=== PATIENT | female | born 1940 | race Caucasian/White ===

== ENCOUNTER 2016-08-13 06:19 | Inpatient (IN) ==
[2016-08-13] MEDS ORDERED: Lidocaine -MPF 1% 2 ML VIAL ID ONE (06:35)
[2016-08-13] MEDS ORDERED: Vancomycin 1,000 MG in D5% in Water 250 ML IVPB ONE (06:35)
[2016-08-13] MEDS ORDERED: CeFAZolin Pre 2,000 MG/100 ML 2,000 MG/100 ML BAG IVPB ONE (06:35)
[2016-08-13] MEDS ORDERED: *HR* Propofol 200 MG/20 ML VIAL IVP ONE (07:08)
[2016-08-13] MEDS ORDERED: *HR* Rocuronium Bromide 50 MG/5 ML VIAL ONE (07:08)
[2016-08-13] MEDS ORDERED: Lidocaine -MPF 2% 2 ML VIAL ONE ×2 (07:08→12:05)
[2016-08-13] MEDS ORDERED: Ondansetron 4 MG/2 ML VIAL ONE (07:08)
[2016-08-13] MEDS ORDERED: *HR* Remifentanil 1 MG VIAL IVP ONE ×2 (07:08)
[2016-08-13] MEDS ORDERED: *HR* Succinylcholine 200 MG/10 ML VIAL IVP ONE (07:08)
[2016-08-13] MEDS ORDERED: Lidocaine -MPF 4% 5 ML AMPUL ONE (07:09)
--- NOTE | 2016-08-13 07:16 | Anesthesia Evaluation PreOp ---
Date of Encounter: 08/13/16 Time of Encounter: 07:13 - Past History Planned Operation: PLIF L3-5 Cardiac History: Hyperlipidemia, Arrhythmia (controlled h/o PAF), Other (nuc stress 2015: ef 70, no angina, neg ischemia/infarct) Pulmonary History: Denies Any Significant HX LYFT DRIVER History: Other (lumbar stenosis/radic down bila LE) Other Medical History: Renal (stones), Thyroid, GERD Anesthesia History: No Prior Anesthetic Complications, Past Anesthesia (cscope, btl, c/s, bilat tka, back, r ctr, cholecyst, l shoulder arth) Alcohol Use: none Drug use: none Medications and Allergies Ondansetron [Zofran] 4 mg PO Q8HR #30 tablet 01/02/15 [Rx] Ondansetron ODT [Zofran ODT] 4 mg SL Q8HR #14 tab.rapdis 10/23/15 [Rx] Sucralfate [Carafate] 1 gm PO QIDAC #40 tablet 10/23/15 [Rx] Allergies Sulfa (Sulfonamide Antibiotics) Allergy (Verified 01/02/15 12:00) Hives - Meds/Allergy Pre-op Review Medications Reviewed: Yes (coumadin stopped 4 days ago) Allergies Reviewed: Yes Beta Blockers on Current Med List: Yes If Beta Blockers taken, Date/Time (Last Dose taken): metoprolol at 2200 Anesthesia Results - Labs Laboratory Tests 08/09/16 08/09/16 08/09/16 14:15 14:15 14:15 Hgb 11.2 L Hct 33.9 L Plt Count 144 PT 30.6 H INR 2.8 APTT 41.3 H Sodium 141 Potassium 4.3 Creatinine 1.53 H repeat coags pending - Imaging EKG: report reviewed (sr/lad) Anesthesia Exam O2 Sat Height 1.52 m Height 1.52 m Height 1.52 m Weight 72.575 kg Weight 72.575 kg Weight 72.575 kg O2 Sat by Pulse Oximetry 96 Vital Signs Temp Pulse Resp BP Pulse Ox 98.6 F 79 18 145/63 96 08/13/16 06:52 08/13/16 06:52 08/13/16 06:52 08/13/16 06:52 08/13/16 06:52 Height: 1.52 Weight: 73 NPO (# of Hours): >8 - HEENT Pupil (Motor): Pupils equal, EOMI Mallampati: III Teeth: Poor dentition Oral Opening: Less than or equal to 3 (good underbite) - LYFT DRIVER LOC: Oriented LYFT DRIVER Motor: Normal RUE, Normal LUE, Normal Face, Deficit RLE, Deficit LLE LYFT DRIVER Sensory: Normal: RUE, LUE, Face, Deficit: RLE, LLE - Cardiac Rhythm: Regular Murmur: None - Pulmonary Breath Sounds: bilateral Clear Respiratory Effort: Symmetrical Anesthesia Assess/Plan ASA Score: 3 Modified Sera Scale for Level of Consciousness: Cooperative, oriented, and tranquil Anesthetic Plan: General Monitoring Plan: Standard Monitors Recovery Plan: PACU
[2016-08-13] MEDS ORDERED: Lidocaine -MPF 1% 2 ML VIAL ONE (07:21)
--- NOTE | 2016-08-13 07:33 | History & Physical Report ---
Date of Encounter: 08/13/16 Time of Encounter: 07:33 24 Hour HP Update - Instructions Instructions: If the History and Physical is less than 30 days old and was completed prior to A.M. admission and or procedure and has NOT been updated on calendar day of procedure please complete this update prior to performing procedure. - Pre-Operative Checklist Preoperative Checklist Indicated: No Prophylactic Antibiotic Ordered: No Home Medications Include Beta Lance: No Beta Lance Taken Today (Day of Surgery): No Beta Lance Taken Yesterday (Day Prior to Surgery): No Is VTE Prophylaxis Indicated?: Yes
[2016-08-13] MEDS: Ringers Solution, Lactated 1,000 ML IVC SCH ×2 (07:44→12:28)
[2016-08-13] MEDS ORDERED: EPHEDrine 50 MG/ML VIAL ONE (08:06)
[2016-08-13] MEDS ORDERED: *HR* Metoprolol 5 MG/5 ML VIAL IVP PRN (08:58)
[2016-08-13] MEDS ORDERED: Ondansetron 4 MG/2 ML VIAL IVP PRN ×2 (08:58→13:00)
[2016-08-13] MEDS ORDERED: Albuterol 2.5 MG/3 ML NEBULIZER IH PRN (08:58)
[2016-08-13] MEDS ORDERED: *HR* HYDROmorphone (PF) 1 MG/ML SYRINGE IVP PRN (08:58)
[2016-08-13] MEDS ORDERED: *HR* Phenylephrine 10 MG/ML VIAL ONE (10:44)
[2016-08-13] MEDS ORDERED: *HR* HYDROmorphone 2 MG/ML SYRINGE ONE (11:14)
[2016-08-13] MEDS ORDERED: *HR* Midazolam HCl 2 MG/2 ML VIAL ONE (11:35)
--- NOTE | 2016-08-13 11:44 | Orthopedic Operative Note ---
Date of procedure: 08/13/16 Pre-op diagnosis: Lumbar spondylolisthesis, lumbar stenosis Post-op diagnosis: same Operation/Findings: Posterior lumbar interbody fusion L3-L5: The patient successfully underwent general endotracheal anesthesia. The patient was given antibiotics prior to the start of the procedure. Compression boots and stockings were used for deep vein thrombosis prophylaxis. A Iqbal catheter was placed. Leads for neuro monitoring were placed on the upper and lower extremities. This included the cranium. The neuro monitoring personnel confirmed there were satisfactory readings prior to the start of the procedure. The patient was turned prone on the Melchor table. The back was prepped and draped in the usual sterile fashion. An incision was was marked and centered over the involved L3-L5 levels in the mid line. The incision was deepened through the lumbar fascia. Bovie cautery and Chinchilla elevators were used to reflect the paraspinal musculature at the lateral extent of the transverse processes of the involved L3 , L4, and L5 levels. Fanny clamps were placed over the spinous L4 and L5 processes. An intraoperative lateral fluoroscopy graft was obtained. A conversation was held between the surgeon and radiologist and both confirmed we had the correct operative levels. We then placed pedicle screws in standard fashion with the aid of fluoroscopy and anatomic landmarks. Briefly a starter awl was used. A gearshift was subsequently used to enter the agricultural pilot hole via a transpedicular route into the vertebral body. The agricultural pilot hole was tapped with an undersized instrument, and subsequently five 6.5 x 40 mm pedicle screws were placed bilaterally at the indicated L3 and L5 levels. We omitted the right L4 screw due to concerns of screw placement but did place a left-sided pedicle screw at L4. The screws were tested with the aid of the neurologic monitoring staff via pedicle screw stimulation. All reading suggested there was no significant cortical wall breech. The screws were also evaluated fluoro- graphically and appeared to be in satisfactory position. We then turned our attention to the decompression portion of the procedure. We removed the supraspinous and interspinous ligaments and subsequently the insertion of the ligamentum flavum on the undersurface of the proximal L4 lamina was dislodged with a curette. We then removed the ligamentum flavum as well as undercut the L4-5 facets at this level to decompress the lateral recesses. We also performed a L4 laminectomy. After the decompression which was over and above that which was required to place the interbody graft, the foramen and traversing roots at this L4-5 level were found to be free and patent. We also took part of the medial facets in order to aid in the decompression. Proceeded proximally to the L3-4 level and again removed the ligamentum flavum, undercut the facets at L3-4, performed medial facetectomies, and a partial L3 laminectomy to complete the decompression. Again the exiting and traversing nerve roots at this level were found to be free and patent after the decompression. We then protected the neural elements including the thecal sac and traversing nerve root on the right at L4-5 with a dural retractor. We made an annulotomy into the L4-5 disc space and then removed disc material using Pituitary instruments. We trialed various size grafts after the endplates were prepared for graft insertion. A 10 x 26 interbody graft fit well within the L4- 5 disc space. We obtained some bone from the posterior superior iliac spine through us a separate incision and combined with this with the bone which we had saved from the laminectomy portion of the procedure. This autograft bone was first placed in the anterior portion of the L4-5 disc space and additional bone was placed within the interbody graft spacer. We then placed the interbody graft spacer obliquely across the L4-5 disc space towards the midline while protecting the neural elements with a root retractor. When the graft was found to be in satisfactory position the pattern keeper was removed. We then turned our attention to the L3-4 level, again protecting the neural elements with a dural retractor. We made an annulotomy into the L3-4 disc space and removed disc material. We prepared the endplates and trialed the L3-4 disc space. Again a 10 x 26 mm interbody graft fit well within the L3-4 disc space. We removed the trial and packed the anterior portion of the disc space was autograft bone. We then placed a 10 x 26 mm interbody graft packed with autograft material obliquely across the disc space towards the midline. We confirmed satisfactory placement and position by fluorographic views. We then removed the pattern keeper. We then copiously irrigated the wound. We then decorticated the transverse processes of L3, L4, and L5 as well as the L3-4 and L4-5, facet joints of the involved levels to aid in the posterolateral fusion. We placed autograft bone in the lateral gutters over these regions. We then placed rods within the screw heads of the involved L3-L5 levels and first locked the distal screws and then subsequently locked the proximal screws so as to improve and reduce the spondylolisthesis previously seen. We then closed the wound in layers with 1 Vicryl for the fascia, 2-0 Vicryl. Subcutaneous tissue, and Dermabond was used for skin closure. Sterile dressings were placed over the wound. The patient was turned supine on a hospital bed and extubated. All sponge instruments and needle counts were correct at the end of the procedure. The patient tolerated the procedure well without complications. Anesthesia: GETA Surgeon: Leonid Damon Jr Estimated blood loss (cc): 200 Condition: stable Disposition: PACU
--- NOTE | 2016-08-13 12:20 | Anesthesia Evaluation Post Op ---
Date of Encounter: 08/13/16 Time of Encounter: 12:19 - Vital Signs Vital Signs: Vital Signs/O2 Sat/Glucose, Most Current Temp Pulse Resp BP Pulse Ox 08/13/16 12:12 97 15 109/65 97 08/13/16 12:02 96 14 120/65 94 08/13/16 11:52 97.0 F L 108 16 124/72 100 08/13/16 08:22 98.6 F 79 18 145/63 96 - Lungs Lungs: Clear Ascult./Percussion - Airway Airway: Non-obstructed - Cardiovascular Regular Rate - Mental Status Mental Status: Asleep with brisk response to light stimulation - Pain Pain Scale: 0 - Nausea Vomiting Nausea Vomiting: Not Present - Hydration Hydration: Tolerates oral liquids - Discharge PostOp Status: Transfer Patient to floor
[2016-08-13] MEDS ORDERED: *HR* Morphine 2 MG/ML SYRINGE IVP PRN (13:00)
[2016-08-13] MEDS ORDERED: Naloxone 0.4 MG/ML INJ IVP PRN (13:00)
[2016-08-13] MEDS ORDERED: Ringers Solution, Lactated 1,000 ML IVC SCH (13:00)
[2016-08-13] MEDS: ceFAZolin 2,000 MG in D5% in Water 100 ML IVPB SCH ×2 (16:13→23:04)
[2016-08-13] MEDS ORDERED: *HR* Warfarin 2.5 MG TABLET PO SCH (18:00)
[2016-08-13] MEDS: Metoprolol XL (24 HR) Succ 25 MG TAB.ER.24H PO SCH (20:10)
[2016-08-13] MEDS: *HR* OxyCODONE Immed Rel 5 MG TABLET PO PRN (20:10)
[2016-08-13] MEDS: Famotidine 20 MG TABLET PO SCH (20:10)
[2016-08-14] MEDS: *HR* OxyCODONE Immed Rel 5 MG TABLET PO PRN (04:25)
[2016-08-14 04:56] LABS: Hematocrit 23.5 % (35.3-44.9); Hemoglobin 7.7 g/dL (11.5-15.4); Immature Granulocytes % 0.3 % (0-4); Lymphocytes # 1.4 K/mcL (0.6-4.6); Lymphocytes % 13.4 %; Mean Corpuscular HGB Conc 32.8 g/dL (31.6-35.5); Mean Corpuscular Volume 94.8 fL (83.0-100.0); Mean Platelet Volume 11.9 fL (9.4-12.4); Monocytes # 0.7 K/mcL (0.0-1.3); Monocytes % 6.7 %; Neutrophils # 8.4 K/mcL (1.6-8.9); Platelet Count 136 K/mcL (140-400); Red Blood Count 2.48 M/mcL (3.82-4.97); Red Cell Distribution Width 13.2 % (11.5-14.5); Segmented Neutrophils % 79.6 %
[2016-08-14 05:10] LABS: Calcium 8.6 mg/dL (8.6-10.8); Potassium 4.8 mEq/L (3.5-4.5)
[2016-08-14] MEDS: Lisinopril 20 MG TABLET PO SCH (08:26)
[2016-08-14] MEDS: (Omega-3/Dha/Epa/Fish Oil [Fish Oil 1,000 Mg Softgel]) PO SCH (08:29)
[2016-08-14] MEDS: Aspirin Enteric Coated 81 MG Tablet PO SCH (08:34)
[2016-08-14] MEDS: Multivit/Ca/Min/Fe/FA 1 TAB TABLET PO SCH (08:34)
[2016-08-14] MEDS: Fenofibrate 54 MG TABLET PO SCH (08:34)
[2016-08-14] MEDS: Famotidine 20 MG TABLET PO SCH (08:34)
[2016-08-14] MEDS: *HR* Warfarin 2.5 MG TABLET PO SCH (17:40)
--- NOTE | 2016-08-14 17:56 | Spine Progress Note ---
Date of Encounter: 08/14/16 Time of Encounter: 17:55 Subjective Principal diagnosis: Spondylolisthesis, lumbar stenosis Interval history: The patient is without complaints. Afebrile vital signs are stable. Dressing is clean dry and intact. Neurovascularly intact with regard to bilateral lower extremities. Fires all upper and lower extremity motor groups. N Assessment : stable. Plan mobilize ,continue analgesics, discharge planning. Objective Vital signs: Vital Signs Temp Pulse Resp BP Pulse Ox 08/14/16 15:38 97.6 F 70 16 103/44 98 08/14/16 11:07 97.4 F L 91 16 93/51 92 08/14/16 07:09 97.9 F 78 16 93/57 98 08/14/16 04:15 98.1 F 78 17 92/47 98 08/13/16 23:15 97.7 F 70 14 91/37 96 08/13/16 19:26 121/44 08/13/16 18:28 97.4 F L 84 17 110/68 98 Intake and Output 08/14/16 08/14/16 08/14/16 07:59 15:59 23:59 Intake Total 100 / 100 Output Total 300 / 300 Balance -300 / -300 100 / 100 Intake: Oral 100 / 100 Output: Catheter 300 / 300 Other: Meal Breakfast Percent of Meal Consumed 30% - Labs CBC & BMP: 08/14/16 04:42 08/14/16 04:42 Labs: Abnormal lab results RBC 2.48 M/mcL (3.82-4.97) L 08/14/16 04:42 Hgb 7.7 g/dL (11.5-15.4) L D 08/14/16 04:42 Hct 23.5 % (35.3-44.9) L 08/14/16 04:42 Plt Count 136 K/mcL (140-400) L 08/14/16 04:42 Potassium 4.8 mEq/L (3.5-4.5) H 08/14/16 04:42 BUN 22 mg/dL (7-20) H 08/14/16 04:42 Creatinine 1.44 mg/dL (0.57-1.11) H 08/14/16 04:42 Est GFR ( Amer) 43 (> 60) L 08/14/16 04:42 Est GFR (Non-Af Amer) 35 (> 60) L 08/14/16 04:42 Glucose 121 mg/dL (70-99) H 08/14/16 04:42 Consult Discharge Plan - Plan Referrals: Cheri Crespo CNP [Primary Care Provider] -
[2016-08-14] MEDS: Metoprolol XL (24 HR) Succ 25 MG TAB.ER.24H PO SCH (21:47)
[2016-08-15] MEDS: *HR* OxyCODONE Immed Rel 5 MG TABLET PO PRN ×3 (04:11→22:14)
[2016-08-15 05:21] LABS: Hematocrit 21.7 % (35.3-44.9); Hemoglobin 7.2 g/dL (11.5-15.4)
[2016-08-15] MEDS ORDERED: 0.9 % Sodium Chloride 250 ML IVC SCH (08:45)
--- NOTE | 2016-08-15 09:03 | Orthopedics Progress Note ---
Date of Encounter: 08/15/16 Time of Encounter: 07:45 - Assessment and Plan (1) Lumbar stenosis Current Visit: Yes Status: Chronic Delmi and cross then start 2 units -communicated with charge nurse. Nurses to notify provider of any sudden changes. Will continue to monitor. (2) Spondylolisthesis, lumbar region Current Visit: Yes Status: Chronic Subjective Principal diagnosis: Spondylolisthesis, lumbar stenosis Interval history: POD#2 PLIF L3-L5 Patient resting in bed. Somnolent, somwhat easily aroused. Neurovascularly intact. Incision and booker-incisional area intact without abnormality. Patient hgb/hct dropped to 7.2/21.7 which is a decrease over the past 24 hours. She also has pallor and per patient worsening weakness. Discussed with Dr. Damon. Delmi cleary cross then start 2 units -communicated with charge nurse. Nurses to notify provider of any sudden changes. Will continue to monitor. Objective Vital signs: Vital Signs Temp Pulse Resp BP Pulse Ox 08/15/16 07:34 98.1 F 78 18 88/57 91 08/15/16 04:44 97.9 F 77 14 103/53 96 08/15/16 00:05 98.4 F 79 16 97/53 96 08/14/16 21:51 74 107/62 08/14/16 20:19 97.8 F 66 18 91/45 99 08/14/16 15:38 97.6 F 70 16 103/44 98 08/14/16 11:07 97.4 F L 91 16 93/51 92 Intake and Output 08/14/16 08/15/16 08/15/16 23:59 07:59 15:59 Intake Total 200 / 200 200 / 200 240 / 240 Output Total 200 / 200 Balance 200 / 200 0 / 0 240 / 240 Intake: Oral 200 / 200 200 / 200 240 / 240 Output: Urine 200 / 200 Other: Meal Breakfast Percent of Meal Consumed 80% - Labs CBC & BMP: 08/15/16 05:09 08/14/16 04:42 Labs: Abnormal lab results RBC 2.48 M/mcL (3.82-4.97) L 08/14/16 04:42 Hgb 7.2 g/dL (11.5-15.4) L 08/15/16 05:09 Hct 21.7 % (35.3-44.9) L 08/15/16 05:09 Plt Count 136 K/mcL (140-400) L 08/14/16 04:42 Potassium 4.8 mEq/L (3.5-4.5) H 08/14/16 04:42 BUN 22 mg/dL (7-20) H 08/14/16 04:42 Creatinine 1.44 mg/dL (0.57-1.11) H 08/14/16 04:42 Est GFR ( Amer) 43 (> 60) L 08/14/16 04:42 Est GFR (Non-Af Amer) 35 (> 60) L 08/14/16 04:42 Glucose 121 mg/dL (70-99) H 08/14/16 04:42 - VTE Documentation of Mechanical Device: Graduated compression elastic hosiery Consult Discharge Plan - Plan Referrals: Zak,Cheri Rogers, ANDROID IOS DEVELOPER [Primary Care Provider] -
[2016-08-15] MEDS: Aspirin Enteric Coated 81 MG Tablet PO SCH (09:54)
[2016-08-15] MEDS: (Omega-3/Dha/Epa/Fish Oil [Fish Oil 1,000 Mg Softgel]) PO SCH (09:54)
[2016-08-15] MEDS: Multivit/Ca/Min/Fe/FA 1 TAB TABLET PO SCH (09:55)
[2016-08-15] MEDS: Lisinopril 20 MG TABLET PO SCH (09:55)
[2016-08-15] MEDS: Fenofibrate 54 MG TABLET PO SCH (09:55)
[2016-08-15] MEDS: Famotidine 20 MG TABLET PO SCH (09:55)
[2016-08-15] MEDS: *HR* Warfarin 2.5 MG TABLET PO SCH (17:38)
[2016-08-15 21:58] LABS: INR 1.9; Prothrombin Time 21.1 Seconds (9.4-12.1)
[2016-08-15] MEDS: Metoprolol XL (24 HR) Succ 25 MG TAB.ER.24H PO SCH (22:14)
[2016-08-16 02:14] LABS: Hematocrit 27.9 % (35.3-44.9)
[2016-08-16 02:15] LABS: Hemoglobin 9.3 g/dL (11.5-15.4)
[2016-08-16 02:31] LABS: INR 1.9; Prothrombin Time 20.9 Seconds (9.4-12.1)
[2016-08-16] MEDS: *HR* OxyCODONE Immed Rel 5 MG TABLET PO PRN ×2 (06:28→12:44)
[2016-08-16] MEDS: Fenofibrate 54 MG TABLET PO SCH (08:57)
[2016-08-16] MEDS: Famotidine 20 MG TABLET PO SCH (08:58)
[2016-08-16] MEDS: (Omega-3/Dha/Epa/Fish Oil [Fish Oil 1,000 Mg Softgel]) PO SCH (08:58)
[2016-08-16] MEDS: Multivit/Ca/Min/Fe/FA 1 TAB TABLET PO SCH (08:58)
[2016-08-16] MEDS: Lisinopril 20 MG TABLET PO SCH (08:58)
[2016-08-16] MEDS: Aspirin Enteric Coated 81 MG Tablet PO SCH (08:58)
--- NOTE | 2016-08-16 12:07 | Discharge Summary ---
Date of Encounter: 08/16/16 Time of Encounter: 12:00 - Discharge Diagnosis (1) Lumbar stenosis Priority: Primary Status: Chronic (2) Spondylolisthesis, lumbar region Priority: Primary Status: Chronic Comments: status post posterior lumbar interbody fusion L3-5. Continue pain medication as needed. Continue with lumbar support brace when ambulating and during transport. (3) Postoperative anemia Priority: Secondary Status: Resolved Comments: Patient type/cross 08/15/16. Given 2 units of blood. Hgb increased to 9.3 from 7.2. Hct to 27.9 from 21.7. Patient clinically improved following transfusion as well. Patient to continue Iron supplementation until hgb/hct maintained. - Discharge Medications Prescriptions: OxyCODONE Immed Rel [Roxicodone 5 MG] 5 mg PO Q6HR PRN #40 tablet PRN Reason: Pain Home Medications: Allopurinol [Zyloprim] 300 mg PO DAILY 08/13/16 [History] Aspirin [Lo-Dose Aspirin EC] 81 mg PO DAILY 08/13/16 [History] Calcium Carbonate [Calcium] 600 mg PO DAILY 08/13/16 [History] Fenofibrate Nanocrystallized [Tricor] 48 mg PO DAILY 08/13/16 [History] Lansoprazole [Prevacid] 30 mg PO DAILY 08/13/16 [History] Levothyroxine [Synthroid] 50 mcg PO 0630 08/13/16 [History] Lisinopril [Zestril] 20 mg PO DAILY 08/13/16 [History] Metoprolol XL (24 HR) Succ [Toprol Xl] 25 mg PO HS 08/13/16 [History] Multivit-Min/FA/Lycopen/Lutein [Centrum Silver Tablet] 1 each PO DAILY 08/13/16 [History] Ardsley-3/Dha/Epa/Fish Oil [Fish Oil 1,000 mg Softgel] 1 each PO DAILY 08/13/16 [ History] Pravastatin Sodium [Pravachol] 40 mg PO HS 08/13/16 [History] Propafenone [Rhythmol] 150 mg PO Q8H 08/13/16 [History] Ranitidine HCl [Zantac] 150 mg PO BID 08/13/16 [History] Warfarin [Coumadin] 2.5 mg PO SUMOWETHFRSA 08/13/16 [History] Warfarin [Coumadin] 3.75 mg PO TU 08/13/16 [History] Acetaminophen [Tylenol] 500 mg PO Q6HR PRN #0 tablet 08/16/16 [Rx] Docusate [Colace] 100 mg PO BID capsule 08/16/16 [Rx] OxyCODONE Immed Rel [Roxicodone 5 MG] 5 mg PO Q6HR PRN #40 tablet 08/16/16 [Rx] Allergies/Adverse Reactions: Allergies Sulfa (Sulfonamide Antibiotics) Allergy (Verified 08/13/16 07:43) Hives Labs on day of discharge: Labs from last 24 hours 08/16/16 08/16/16 08/15/16 01:33 01:33 21:27 Hgb 9.3 L D Hct 27.9 L PT 20.9 H 21.1 H INR 1.9 1.9 Blood Type Antibody Screen Crossmatch 08/15/16 08:54 Hgb Hct PT INR Blood Type A POSITIVE Antibody Screen NEGATIVE Crossmatch See Detail - Impressions ITS Impressions Fluoroscopy 08/13/16 08:30 IMPRESSION: 1. 23.1 seconds of intraoperative fluoroscopy provided. 2. Anatomic alignment of the lumbar spine status post L3 through L5 posterior fusion. No evidence of hardware complication. D/ / Fidel Monroe MD / Fidel Monroe MD Interpreting Provider: Fidel Monroe MD Lumbar Spine X-Ray 08/13/16 08:30 IMPRESSION: 1. 23.1 seconds of intraoperative fluoroscopy provided. 2. Anatomic alignment of the lumbar spine status post L3 through L5 posterior fusion. No evidence of hardware complication. D/ / Fidel Monroe MD / Fidel Monroe MD Interpreting Provider: Fidel Monroe MD Lumbar Spine X-Ray 08/16/16 08:30 IMPRESSION: Posterior fixation at L3-L5 with L4 posterior decompression. D/ / Timothy Cooper MD / Timothy Cooper MD Interpreting Provider: Timothy Cooper MD Date of admission: 08/13/16 12:57 Primary care physician: Cheri Crespo CNP Consults: 08/13/16 13:00 Consult to Occupational Therapy [CONS] Routine Comment: Evaluate, develop and implement POC Reason for Consult: Postoperative Consult to Physical Therapy [CONS] Routine Comment: Evaluate, develop and implement POC Reason for Consult: Postoperative Consult to Clerk Specialist [CONS] Routine Reason for SW Consult: Postoperative rehabilitation Consult to Spine Navigator [CONS] [CONS] Routine Discharging clinician: Leonid Damon Jr Anticipated date of discharge: 08/16/16 - Patient Status Disposition: Transfer Inpatient Rehab Fac Condition: Good Functional capacity at discharge: uses cane/walker Overall status at discharge: patient is progressing back to baseline - Discharge Instructions Instructions: Anemia (GEN) Follow Up With: Reyna Santoro PAC [Physician It Lead] - 08/28/16 10:10 am Additional Instructions: Discharge Instructions: Lumbar Please call [facility] ([phone]), your Primary Care Physician, or report to the ER if you have any of the following symptoms: Fever greater that 101.5, increased pain/redness/drainage/odor for your incision site or any other concerning symptoms. ACTIVITY * May Shower * No Tub Baths * No lifting greater than 10 pounds * No Smoking * No Swimming * No off Ground Activities (Running, Climbing, Ladders, Horseback Riding) * No Driving * Wear Back Brace when up walking if lumbar fusion done MEDICATIONS: Upon discharge resume your home medications. Take all the medications as prescribed. Take a stool softener if taking narcotic pain medications. Stool softeners are only effective if you drink enough fluids. Drink 6-8 glass of water or fluids a day, unless this is not allowed for another health problem. Despite using stool softeners, if you haven't had a bowel movement in 3 days, please switch to a gentle laxative. Gentle laxatives are sold over the counter. You should have a bowel movement within 24 hours, if not call the office. You will be discharged from the hospital with a prescription for pain medication. You are encouraged to decrease the use of narcotic pain medication as tolerated. Should you require a refill, please call the office. It is best to call 48-72 hours in advance of needing a prescription refill so you don't run out of medication. WOUND CARE: Remove Dressing Tomorrow. Leave incision open to air. Pat dry when you get out of the shower. FOLLOW-UP: Please follow up with your surgeon in the orthopedic clinic in 2 weeks from the day of surgery. References: [employer] (www.apta.org) - Diet and Activity Activity: as per physical therapy Diet: advance to your usual diet - Hospital Course Hospital course: Ms. Rose is a 76 year old female - Time Spent with Patient Total time spent providing and/or coordinating discharge services: - VTE Documentation of Mechanical Device: Intermittent pneumatic compression device
[2016-08-16 12:44] VITALS: BP 120/75
== END 2016-08-16 14:40 | DRG 460 ==
LOC: SAMDAY 06:19 → 3NENU 12:57
PROVIDERS: ADMIT Orthopaedic Surgery Orthopaedic Surgery of the Spine; ATTEND Orthopaedic Surgery Orthopaedic Surgery of the Spine